=== PATIENT | female | born 1995 | race American Indian/Alaskan Native ===

== ENCOUNTER 2016-10-06 12:57 | Inpatient (IN) | payer MEDICAID ==
[2016-10-06] MEDS: LACTATED RINGERS 1,000 ML IV SCH ×2 (13:20→14:52)
[2016-10-06] MEDS ORDERED: BRETHINE IVP PRN (13:41)
[2016-10-06] MEDS ORDERED: MINERAL OIL PO PRN (13:41)
[2016-10-06] MEDS ORDERED: BRETHINE SUB-Q PRN (13:41)
[2016-10-06] MEDS ORDERED: SUBLIMAZE IV PRN (13:41)
[2016-10-06] MEDS ORDERED: ePHEDrine SULFATE IV PRN ×2 (13:41→14:36)
--- NOTE | 2016-10-06 13:50 | History and Physical Report ---
History of Present Illness Date of examination: 10/06/16 (Direct admit from office apt) Date of admission: 10/06/16 12:57 Chief complaint: FHR decelerations on NST at office apt Past History Past Surgical History: no surgical history Family/Genetic History: diabetes, hypertension, cancer Social history: single - Obstetrical History Expected Date of Delivery: 10/01/16 Actual Gestation: 40 Week(s) 5 Day(s) : 2 Para: 1 Hx # Term Pregnancies: 1 Number of Living Children: 1 #1 year: 2,015 Birthweight: 3.827 kg Method of Delivery: Vaginal Gestational age at delivery: 40 Complications: other (Induction for oligo) Medications and Allergies Allergies Allergy/AdvReac Type Severity Reaction Status Date / Time latex Allergy Rash Verified 05/18/16 12:51 Home Medications Medication Instructions Recorded Confirmed Last Taken Type Ondansetron [Zofran Odt] 4 mg PO Q8H PRN #10 tab.rapdis 05/18/16 Unknown Rx Review of Systems All systems: negative - Vital Signs Vital signs: Vital Signs Pulse BP Pulse Ox 118 H 116/77 99 10/06/16 13:08 10/06/16 13:08 10/06/16 13:08 Temp Pulse Resp BP Pulse Ox 89 116/77 100 10/06/16 13:43 10/06/16 13:08 10/06/16 13:43 - Physical Exam Breasts: Positive: normal Cardiovascular: Regular rate Lungs: Positive: Clear to auscultation Abdomen: Positive: normal appearance, soft Genitourinary (Female): Positive: normal external genitalia Vulva: both: normal Vagina: Positive: normal moisture Cervix: Negative: lesion, discharge Uterus: Positive: normal size, normal contour Adnexa: both: normal Anus/Rectum: Positive: normal perianal skin, heme negative. Negative: rectal mass, hemorrhoids Extremities: Deep Tendon Reflex Grade: Normal +2 - Obstetrical Uterine Contraction Monitor Mode: External Cervical Dilatation: 4 Cervical Effacement Percentage: 80 station: -1 Uterine Contraction Pattern: Regular Uterine Contraction Intensity: Moderate Results All other labs normal. Assessment and Plan A. 21 y/o admitted after repetative FHR decels on NST in office Pt with SOOL during office visit with ctx now Q 2-3 min Pt desires epidural now FHR tracing improved O/A to hosp P Routine admission, labs, VS Close obs of maternal/ status Physician consult for maternal/ indications Epidural when IVF bolus and labs completed' At this time, anticipate
[2016-10-06] MEDS ORDERED: PITOCin/NS 20 UNIT/1000ML DRIP 1,000 ML IV SCH (14:00)
[2016-10-06] MEDS ORDERED: FLUARIX QUAD 2016-2017(36 MOS+) IM ONE (14:02)
[2016-10-06] MEDS ORDERED: BOOSTRIX IM ONE (14:02)
[2016-10-06 14:15] LABS: Hematocrit 32.2 % (30.3-42.9); Hemoglobin 9.8 gm/dl (10.1-14.3); Mean Corpuscular HGB Conc 30 % (30-34); Platelet Count 293 K/mm3 (140-440); Red Blood Count 4.95 M/mm3 (3.65-5.03); Red Cell Distribution Width 18.5 % (13.2-15.2); White Blood Count 9.8 K/mm3 (4.5-11.0)
[2016-10-06 14:19] LABS: Mean Corpuscular Hemoglobin 20 pg (28-32); Mean Corpuscular Volume 65 fl (79-97)
[2016-10-06] MEDS ORDERED: NARCAN 2 MG/2 ML IV PRN (14:36)
--- NOTE | 2016-10-06 14:36 | Anesthesia Consultation ---
Anesthesia Consult and Med Hx Date of service: 10/06/16 - Airway Anesthetic Teeth Evaluation: Good ROM Head & Neck: Adequate Mental/Hyoid Distance: Adequate Mallampati Class: Class II Intubation Access Assessment: Probably Good - Pulmonary Exam CTA: Yes - Cardiac Exam Cardiac Exam: RRR - Pre-Operative Health Status ASA Pre-Surgery Classification: ASA2 Proposed Anesthetic Plan: Epidural - Pre-Anesthesia Comment Pre-Anesthesia Comments: plt: 293 - Pulmonary Hx Asthma: No COPD: No Hx Pneumonia: No - Cardiovascular System Hx Hypertension: No - Central Nervous System Hx Seizures: No Hx Back Pain: Yes Hx Psychiatric Problems: No - Gastrointestinal Hx Gastroesophageal Reflux Disease: Yes - Endocrine Hx Renal Disease: No Hx End Stage Renal Disease: No Hx Hypothyroidism: No Hx Hyperthyroidism: No - Hematic Hx Anemia: No (H/H: 9.8/32.2) Hx Sickle Cell Disease: No - Other Systems Hx Alcohol Use: No
[2016-10-06] MEDS ORDERED: fentaNYL-BUPIV 2 MCG/ML-0.125% 100 ML EPIDURAL SCH (15:00)
--- NOTE | 2016-10-06 16:57 | Progress Note ---
Assessment and Plan A, Term IUP, active labor now Mec stained fluid P Continue close obs of maternal/ status [facility] Continue to anticipate at this time with physician consult per maternal/ indications Subjective - Subjective Date of service: 10/06/16 Patient reports: other (Comfortable now with epidural. FOB resting in room) Objective - Vital Signs Vital Signs: Vital Signs - 12hr 10/06/16 10/06/16 10/06/16 13:08 13:13 13:18 Temperature Pulse Rate 115 H 111 H 100 H Respiratory Rate Blood Pressure 116/77 O2 Sat by Pulse 99 99 100 Oximetry 10/06/16 10/06/16 10/06/16 13:20 13:23 13:28 Temperature 97.9 F Pulse Rate 107 H 106 H Respiratory 14 Rate Blood Pressure O2 Sat by Pulse 100 99 100 Oximetry 10/06/16 10/06/16 10/06/16 13:33 13:38 13:43 Temperature Pulse Rate 97 H 87 89 Respiratory Rate Blood Pressure O2 Sat by Pulse 100 100 100 Oximetry 10/06/16 10/06/16 10/06/16 13:48 13:53 13:58 Temperature Pulse Rate 91 H 105 H 88 Respiratory Rate Blood Pressure O2 Sat by Pulse 100 100 100 Oximetry 10/06/16 10/06/16 10/06/16 14:03 14:08 14:13 Temperature Pulse Rate 87 89 92 H Respiratory Rate Blood Pressure O2 Sat by Pulse 100 100 100 Oximetry 10/06/16 10/06/16 10/06/16 14:18 14:23 14:28 Temperature Pulse Rate 87 86 93 H Respiratory Rate Blood Pressure O2 Sat by Pulse 100 100 100 Oximetry 10/06/16 10/06/16 10/06/16 14:33 14:35 14:36 Temperature Pulse Rate 93 H 100 H 96 H Respiratory Rate Blood Pressure 124/81 125/85 O2 Sat by Pulse 100 Oximetry 10/06/16 10/06/16 10/06/16 14:38 14:40 14:41 Temperature Pulse Rate 93 H 93 H 49 L Respiratory Rate Blood Pressure 112/72 114/73 O2 Sat by Pulse 99 83 L Oximetry 10/06/16 10/06/16 10/06/16 14:42 14:43 14:44 Temperature Pulse Rate 96 H 99 H 101 H Respiratory Rate Blood Pressure 117/73 125/82 O2 Sat by Pulse 99 Oximetry 10/06/16 10/06/16 10/06/16 14:46 14:48 14:50 Temperature Pulse Rate 95 H 95 H 92 H Respiratory Rate Blood Pressure 115/70 120/71 114/67 O2 Sat by Pulse 100 Oximetry 10/06/16 10/06/16 10/06/16 14:52 14:53 14:58 Temperature Pulse Rate 89 95 H 94 H Respiratory Rate Blood Pressure 124/71 O2 Sat by Pulse 99 100 Oximetry 10/06/16 10/06/16 10/06/16 14:59 15:03 15:08 Temperature Pulse Rate 83 88 85 Respiratory Rate Blood Pressure 116/69 98/57 121/72 O2 Sat by Pulse 100 99 Oximetry 10/06/16 10/06/16 10/06/16 15:13 15:15 15:18 Temperature Pulse Rate 90 82 84 Respiratory Rate Blood Pressure 116/69 O2 Sat by Pulse 99 99 Oximetry 10/06/16 10/06/16 10/06/16 15:19 15:23 15:24 Temperature Pulse Rate 80 93 H 88 Respiratory Rate Blood Pressure 125/57 115/72 O2 Sat by Pulse 100 Oximetry 10/06/16 10/06/16 10/06/16 15:28 15:33 15:38 Temperature Pulse Rate 82 94 H 92 H Respiratory Rate Blood Pressure O2 Sat by Pulse 100 100 99 Oximetry 10/06/16 10/06/16 10/06/16 15:43 15:44 15:48 Temperature Pulse Rate 92 H 96 H 91 H Respiratory Rate Blood Pressure O2 Sat by Pulse 97 92 98 Oximetry 10/06/16 10/06/16 10/06/16 15:53 15:54 15:58 Temperature Pulse Rate 92 H 85 89 Respiratory Rate Blood Pressure 117/71 O2 Sat by Pulse 98 98 Oximetry 10/06/16 10/06/16 10/06/16 16:03 16:08 16:13 Temperature Pulse Rate 93 H 90 89 Respiratory Rate Blood Pressure O2 Sat by Pulse 98 97 97 Oximetry 10/06/16 10/06/16 10/06/16 16:18 16:23 16:25 Temperature Pulse Rate 86 81 85 Respiratory Rate Blood Pressure 116/73 O2 Sat by Pulse 97 98 Oximetry 10/06/16 10/06/16 10/06/16 16:28 16:33 16:38 Temperature Pulse Rate 98 H 82 79 Respiratory Rate Blood Pressure O2 Sat by Pulse 100 99 100 Oximetry 10/06/16 10/06/16 10/06/16 16:43 16:48 16:53 Temperature Pulse Rate 98 H 106 H 69 Respiratory Rate Blood Pressure O2 Sat by Pulse 98 100 99 Oximetry - Exam Breasts: deferred Cardiovascular: Regular rate Lungs: Normal air movement Abdomen: Present: normal appearance, soft Vulva: both: normal Uterus: Present: normal FHR: category 2 Uterine Contraction Monitor Mode: External Cervical Dilatation: 6 (SROM with large gush of mec stained fluid during exam) Cervical Effacement Percentage: 90 station: -2 Uterine Contraction Pattern: Regular Extremities: normal - Labs Labs: Abnormal Labs 10/06/16 13:30 Hgb 9.8 L MCV 65 L MCH 20 L RDW 18.5 H Laboratory Results - last 24 hr 10/06/16 10/06/16 13:30 13:30 WBC 9.8 RBC 4.95 Hgb 9.8 L Hct 32.2 MCV 65 L MCH 20 L MCHC 30 RDW 18.5 H Plt Count 293 Blood Type O POSITIVE Antibody Screen Negative
--- NOTE | 2016-10-06 18:16 | Progress Note ---
Assessment and Plan A. Term IUP, active labor Progressing FHR remains over all reassuring P Continue to obs maternal/ status\ Continue anticipate Plan physician consult as indicated Subjective - Subjective Date of service: 10/06/16 Patient reports: other (Continues to be comfortable with epidural) Objective - Vital Signs Vital Signs: Vital Signs - 12hr 10/06/16 10/06/16 10/06/16 13:08 13:13 13:18 Temperature Pulse Rate 115 H 111 H 100 H Respiratory Rate Blood Pressure 116/77 O2 Sat by Pulse 99 99 100 Oximetry 10/06/16 10/06/16 10/06/16 13:20 13:23 13:28 Temperature 97.9 F Pulse Rate 107 H 106 H Respiratory 14 Rate Blood Pressure O2 Sat by Pulse 100 99 100 Oximetry 10/06/16 10/06/16 10/06/16 13:33 13:38 13:43 Temperature Pulse Rate 97 H 87 89 Respiratory Rate Blood Pressure O2 Sat by Pulse 100 100 100 Oximetry 10/06/16 10/06/16 10/06/16 13:48 13:53 13:58 Temperature Pulse Rate 91 H 105 H 88 Respiratory Rate Blood Pressure O2 Sat by Pulse 100 100 100 Oximetry 10/06/16 10/06/16 10/06/16 14:03 14:08 14:13 Temperature Pulse Rate 87 89 92 H Respiratory Rate Blood Pressure O2 Sat by Pulse 100 100 100 Oximetry 10/06/16 10/06/16 10/06/16 14:18 14:23 14:28 Temperature Pulse Rate 87 86 93 H Respiratory Rate Blood Pressure O2 Sat by Pulse 100 100 100 Oximetry 10/06/16 10/06/16 10/06/16 14:33 14:35 14:36 Temperature Pulse Rate 93 H 100 H 96 H Respiratory Rate Blood Pressure 124/81 125/85 O2 Sat by Pulse 100 Oximetry 10/06/16 10/06/16 10/06/16 14:38 14:40 14:41 Temperature Pulse Rate 93 H 93 H 49 L Respiratory Rate Blood Pressure 112/72 114/73 O2 Sat by Pulse 99 83 L Oximetry 10/06/16 10/06/16 10/06/16 14:42 14:43 14:44 Temperature Pulse Rate 96 H 99 H 101 H Respiratory Rate Blood Pressure 117/73 125/82 O2 Sat by Pulse 99 Oximetry 10/06/16 10/06/16 10/06/16 14:46 14:48 14:50 Temperature Pulse Rate 95 H 95 H 92 H Respiratory Rate Blood Pressure 115/70 120/71 114/67 O2 Sat by Pulse 100 Oximetry 10/06/16 10/06/16 10/06/16 14:52 14:53 14:58 Temperature Pulse Rate 89 95 H 94 H Respiratory Rate Blood Pressure 124/71 O2 Sat by Pulse 99 100 Oximetry 10/06/16 10/06/16 10/06/16 14:59 15:03 15:08 Temperature Pulse Rate 83 88 85 Respiratory Rate Blood Pressure 116/69 98/57 121/72 O2 Sat by Pulse 100 99 Oximetry 10/06/16 10/06/16 10/06/16 15:13 15:15 15:18 Temperature Pulse Rate 90 82 84 Respiratory Rate Blood Pressure 116/69 O2 Sat by Pulse 99 99 Oximetry 10/06/16 10/06/16 10/06/16 15:19 15:23 15:24 Temperature Pulse Rate 80 93 H 88 Respiratory Rate Blood Pressure 125/57 115/72 O2 Sat by Pulse 100 Oximetry 10/06/16 10/06/16 10/06/16 15:28 15:33 15:38 Temperature Pulse Rate 82 94 H 92 H Respiratory Rate Blood Pressure O2 Sat by Pulse 100 100 99 Oximetry 10/06/16 10/06/16 10/06/16 15:43 15:44 15:48 Temperature Pulse Rate 92 H 96 H 91 H Respiratory Rate Blood Pressure O2 Sat by Pulse 97 92 98 Oximetry 10/06/16 10/06/16 10/06/16 15:53 15:54 15:58 Temperature Pulse Rate 92 H 85 89 Respiratory Rate Blood Pressure 117/71 O2 Sat by Pulse 98 98 Oximetry 10/06/16 10/06/16 10/06/16 16:03 16:08 16:13 Temperature Pulse Rate 93 H 90 89 Respiratory Rate Blood Pressure O2 Sat by Pulse 98 97 97 Oximetry 10/06/16 10/06/16 10/06/16 16:18 16:23 16:25 Temperature Pulse Rate 86 81 85 Respiratory Rate Blood Pressure 116/73 O2 Sat by Pulse 97 98 Oximetry 10/06/16 10/06/16 10/06/16 16:28 16:33 16:38 Temperature Pulse Rate 98 H 82 79 Respiratory Rate Blood Pressure O2 Sat by Pulse 100 99 100 Oximetry 10/06/16 10/06/16 10/06/16 16:43 16:48 16:53 Temperature Pulse Rate 98 H 106 H 69 Respiratory Rate Blood Pressure O2 Sat by Pulse 98 100 99 Oximetry 10/06/16 10/06/16 10/06/16 16:55 16:58 17:03 Temperature Pulse Rate 104 H 96 H 86 Respiratory Rate Blood Pressure 135/94 O2 Sat by Pulse 98 99 Oximetry 10/06/16 10/06/16 10/06/16 17:06 17:08 17:13 Temperature 98.0 F Pulse Rate 77 78 Respiratory 18 Rate Blood Pressure O2 Sat by Pulse 100 100 Oximetry 10/06/16 10/06/16 10/06/16 17:18 17:23 17:24 Temperature Pulse Rate 74 83 84 Respiratory Rate Blood Pressure 140/90 O2 Sat by Pulse 100 100 Oximetry 10/06/16 10/06/16 10/06/16 17:28 17:33 17:38 Temperature Pulse Rate 87 71 73 Respiratory Rate Blood Pressure O2 Sat by Pulse 100 100 100 Oximetry 10/06/16 10/06/16 10/06/16 17:43 17:48 17:53 Temperature Pulse Rate 73 88 80 Respiratory Rate Blood Pressure O2 Sat by Pulse 100 100 100 Oximetry 10/06/16 10/06/16 10/06/16 17:56 17:58 18:03 Temperature Pulse Rate 80 74 88 Respiratory Rate Blood Pressure 131/78 O2 Sat by Pulse 100 99 Oximetry 10/06/16 10/06/16 18:08 18:13 Temperature Pulse Rate 89 95 H Respiratory Rate Blood Pressure O2 Sat by Pulse 99 100 Oximetry - Exam Abdomen: Present: normal appearance Vulva: both: normal Uterus: Present: normal FHR: auscultation normal, other (FHR remains reassuring. FHR decle audible during exam but didn't trace. Resolved on return of pt to side after exam) Uterine Contraction Monitor Mode: External Cervical Dilatation: 7 Cervical Effacement Percentage: 100 station: -1 Uterine Contraction Pattern: Regular Uterine Contraction Intensity: Moderate - Labs Labs: Abnormal Labs 10/06/16 13:30 Hgb 9.8 L MCV 65 L MCH 20 L RDW 18.5 H Laboratory Results - last 24 hr 10/06/16 10/06/16 13:30 13:30 WBC 9.8 RBC 4.95 Hgb 9.8 L Hct 32.2 MCV 65 L MCH 20 L MCHC 30 RDW 18.5 H Plt Count 293 Blood Type O POSITIVE Antibody Screen Negative
--- NOTE | 2016-10-06 20:43 | Progress Note ---
Assessment and Plan A. No change in cx /maternal status stable P IUPC/FSE placed Pitocin ordered Observation for progress Observation of maternal/ status Physician consult if indicated Continue at this time, to anticipate Subjective - Subjective Date of service: 10/06/16 Patient reports: other (Continues to be comfortable with epidural) Objective - Vital Signs Vital Signs: Vital Signs - 12hr 10/06/16 10/06/16 10/06/16 13:08 13:13 13:18 Temperature Pulse Rate 115 H 111 H 100 H Respiratory Rate Blood Pressure 116/77 O2 Sat by Pulse 99 99 100 Oximetry 10/06/16 10/06/16 10/06/16 13:20 13:23 13:28 Temperature 97.9 F Pulse Rate 107 H 106 H Respiratory 14 Rate Blood Pressure O2 Sat by Pulse 100 99 100 Oximetry 10/06/16 10/06/16 10/06/16 13:33 13:38 13:43 Temperature Pulse Rate 97 H 87 89 Respiratory Rate Blood Pressure O2 Sat by Pulse 100 100 100 Oximetry 10/06/16 10/06/16 10/06/16 13:48 13:53 13:58 Temperature Pulse Rate 91 H 105 H 88 Respiratory Rate Blood Pressure O2 Sat by Pulse 100 100 100 Oximetry 10/06/16 10/06/16 10/06/16 14:03 14:08 14:13 Temperature Pulse Rate 87 89 92 H Respiratory Rate Blood Pressure O2 Sat by Pulse 100 100 100 Oximetry 10/06/16 10/06/16 10/06/16 14:18 14:23 14:28 Temperature Pulse Rate 87 86 93 H Respiratory Rate Blood Pressure O2 Sat by Pulse 100 100 100 Oximetry 10/06/16 10/06/16 10/06/16 14:33 14:35 14:36 Temperature Pulse Rate 93 H 100 H 96 H Respiratory Rate Blood Pressure 124/81 125/85 O2 Sat by Pulse 100 Oximetry 10/06/16 10/06/16 10/06/16 14:38 14:40 14:41 Temperature Pulse Rate 93 H 93 H 49 L Respiratory Rate Blood Pressure 112/72 114/73 O2 Sat by Pulse 99 83 L Oximetry 10/06/16 10/06/16 10/06/16 14:42 14:43 14:44 Temperature Pulse Rate 96 H 99 H 101 H Respiratory Rate Blood Pressure 117/73 125/82 O2 Sat by Pulse 99 Oximetry 10/06/16 10/06/16 10/06/16 14:46 14:48 14:50 Temperature Pulse Rate 95 H 95 H 92 H Respiratory Rate Blood Pressure 115/70 120/71 114/67 O2 Sat by Pulse 100 Oximetry 10/06/16 10/06/16 10/06/16 14:52 14:53 14:58 Temperature Pulse Rate 89 95 H 94 H Respiratory Rate Blood Pressure 124/71 O2 Sat by Pulse 99 100 Oximetry 10/06/16 10/06/16 10/06/16 14:59 15:03 15:08 Temperature Pulse Rate 83 88 85 Respiratory Rate Blood Pressure 116/69 98/57 121/72 O2 Sat by Pulse 100 99 Oximetry 10/06/16 10/06/16 10/06/16 15:13 15:15 15:18 Temperature Pulse Rate 90 82 84 Respiratory Rate Blood Pressure 116/69 O2 Sat by Pulse 99 99 Oximetry 10/06/16 10/06/16 10/06/16 15:19 15:20 15:23 Temperature Pulse Rate 80 93 H Respiratory 16 Rate Blood Pressure 125/57 O2 Sat by Pulse 100 Oximetry 10/06/16 10/06/16 10/06/16 15:24 15:28 15:33 Temperature Pulse Rate 88 82 94 H Respiratory Rate Blood Pressure 115/72 O2 Sat by Pulse 100 100 Oximetry 10/06/16 10/06/16 10/06/16 15:38 15:43 15:44 Temperature Pulse Rate 92 H 92 H 96 H Respiratory Rate Blood Pressure O2 Sat by Pulse 99 97 92 Oximetry 10/06/16 10/06/16 10/06/16 15:48 15:53 15:54 Temperature Pulse Rate 91 H 92 H 85 Respiratory Rate Blood Pressure 117/71 O2 Sat by Pulse 98 98 Oximetry 10/06/16 10/06/16 10/06/16 15:58 16:03 16:08 Temperature Pulse Rate 89 93 H 90 Respiratory Rate Blood Pressure O2 Sat by Pulse 98 98 97 Oximetry 10/06/16 10/06/16 10/06/16 16:13 16:18 16:23 Temperature Pulse Rate 89 86 81 Respiratory Rate Blood Pressure O2 Sat by Pulse 97 97 98 Oximetry 10/06/16 10/06/16 10/06/16 16:25 16:28 16:33 Temperature Pulse Rate 85 98 H 82 Respiratory Rate Blood Pressure 116/73 O2 Sat by Pulse 100 99 Oximetry 10/06/16 10/06/16 10/06/16 16:38 16:43 16:48 Temperature Pulse Rate 79 98 H 106 H Respiratory Rate Blood Pressure O2 Sat by Pulse 100 98 100 Oximetry 10/06/16 10/06/16 10/06/16 16:53 16:55 16:58 Temperature Pulse Rate 69 104 H 96 H Respiratory Rate Blood Pressure 135/94 O2 Sat by Pulse 99 98 Oximetry 10/06/16 10/06/16 10/06/16 17:03 17:06 17:08 Temperature 98.0 F Pulse Rate 86 77 Respiratory 18 Rate Blood Pressure O2 Sat by Pulse 99 100 Oximetry 10/06/16 10/06/16 10/06/16 17:13 17:18 17:23 Temperature Pulse Rate 78 74 83 Respiratory Rate Blood Pressure O2 Sat by Pulse 100 100 100 Oximetry 10/06/16 10/06/16 10/06/16 17:24 17:28 17:33 Temperature Pulse Rate 84 87 71 Respiratory Rate Blood Pressure 140/90 O2 Sat by Pulse 100 100 Oximetry 10/06/16 10/06/16 10/06/16 17:38 17:43 17:48 Temperature Pulse Rate 73 73 88 Respiratory Rate Blood Pressure O2 Sat by Pulse 100 100 100 Oximetry 10/06/16 10/06/16 10/06/16 17:53 17:56 17:58 Temperature Pulse Rate 80 80 74 Respiratory Rate Blood Pressure 131/78 O2 Sat by Pulse 100 100 Oximetry 10/06/16 10/06/16 10/06/16 18:03 18:08 18:13 Temperature Pulse Rate 88 89 95 H Respiratory Rate Blood Pressure O2 Sat by Pulse 99 99 100 Oximetry 10/06/16 10/06/16 10/06/16 18:18 18:23 18:24 Temperature Pulse Rate 65 77 66 Respiratory Rate Blood Pressure 118/67 O2 Sat by Pulse 100 100 Oximetry 10/06/16 10/06/16 10/06/16 18:28 18:33 18:38 Temperature Pulse Rate 78 66 68 Respiratory Rate Blood Pressure O2 Sat by Pulse 99 99 99 Oximetry 10/06/16 10/06/16 10/06/16 18:43 18:48 18:53 Temperature Pulse Rate 73 69 68 Respiratory Rate Blood Pressure O2 Sat by Pulse 99 98 99 Oximetry 10/06/16 10/06/16 10/06/16 18:56 18:58 19:03 Temperature Pulse Rate 68 70 72 Respiratory Rate Blood Pressure 124/69 O2 Sat by Pulse 99 98 Oximetry 10/06/16 10/06/16 10/06/16 19:08 19:13 19:14 Temperature Pulse Rate 72 91 H 86 Respiratory Rate Blood Pressure 115/73 O2 Sat by Pulse 98 98 Oximetry 10/06/16 10/06/16 10/06/16 19:15 19:18 19:23 Temperature 97.2 F L Pulse Rate 71 99 H Respiratory 18 Rate Blood Pressure O2 Sat by Pulse 98 99 Oximetry 10/06/16 10/06/16 10/06/16 19:25 19:28 19:33 Temperature Pulse Rate 78 103 H 79 Respiratory Rate Blood Pressure 143/84 O2 Sat by Pulse 98 100 Oximetry 10/06/16 10/06/16 10/06/16 19:38 19:43 19:48 Temperature Pulse Rate 74 80 101 H Respiratory Rate Blood Pressure O2 Sat by Pulse 97 98 97 Oximetry 10/06/16 10/06/16 10/06/16 19:53 19:55 19:58 Temperature Pulse Rate 94 H 91 H 88 Respiratory Rate Blood Pressure 144/89 O2 Sat by Pulse 98 98 Oximetry 10/06/16 10/06/16 10/06/16 20:03 20:08 20:13 Temperature Pulse Rate 73 77 99 H Respiratory Rate Blood Pressure O2 Sat by Pulse 98 98 98 Oximetry 10/06/16 10/06/16 10/06/16 20:18 20:23 20:25 Temperature Pulse Rate 91 H 106 H 100 H Respiratory Rate Blood Pressure 134/88 O2 Sat by Pulse 99 99 Oximetry 10/06/16 10/06/16 10/06/16 20:28 20:33 20:38 Temperature Pulse Rate 97 H 116 H 105 H Respiratory Rate Blood Pressure O2 Sat by Pulse 96 98 97 Oximetry - Exam Cardiovascular: Regular rate Abdomen: Present: normal appearance, soft Vulva: both: normal Uterus: Present: normal FHR: category 2 FHR comments: Remains reassuring with accels and normal variability with intermittent FHR decels and spontaneous resolution. Uterine Contraction Monitor Mode: External Cervical Dilatation: 7 Cervical Effacement Percentage: 100 station: -1 Uterine Contraction Pattern: Regular Uterine Contraction Intensity: Moderate - Labs Labs: Abnormal Labs 10/06/16 13:30 Hgb 9.8 L MCV 65 L MCH 20 L RDW 18.5 H Laboratory Results - last 24 hr 10/06/16 10/06/16 13:30 13:30 WBC 9.8 RBC 4.95 Hgb 9.8 L Hct 32.2 MCV 65 L MCH 20 L MCHC 30 RDW 18.5 H Plt Count 293 Blood Type O POSITIVE Antibody Screen Negative
[2016-10-06] MEDS ORDERED: PITOCin/NS 30 UNIT/500ML 500 ML IV SCH (21:00)
--- NOTE | 2016-10-06 21:54 | Progress Note ---
Assessment and Plan A. Slowly progressing /maternal status stable P Pitocin augmentation Anticipate Subjective - Subjective Date of service: 10/06/16 (RN called to report she has not had time to start pitocin b/c she got a new admission) Patient reports: other (Continues to be comfortable with epidural) Objective - Vital Signs Vital Signs: Vital Signs - 12hr 10/06/16 10/06/16 10/06/16 13:08 13:13 13:18 Temperature Pulse Rate 115 H 111 H 100 H Respiratory Rate Blood Pressure 116/77 O2 Sat by Pulse 99 99 100 Oximetry 10/06/16 10/06/16 10/06/16 13:20 13:23 13:28 Temperature 97.9 F Pulse Rate 107 H 106 H Respiratory 14 Rate Blood Pressure O2 Sat by Pulse 100 99 100 Oximetry 10/06/16 10/06/16 10/06/16 13:33 13:38 13:43 Temperature Pulse Rate 97 H 87 89 Respiratory Rate Blood Pressure O2 Sat by Pulse 100 100 100 Oximetry 10/06/16 10/06/16 10/06/16 13:48 13:53 13:58 Temperature Pulse Rate 91 H 105 H 88 Respiratory Rate Blood Pressure O2 Sat by Pulse 100 100 100 Oximetry 10/06/16 10/06/16 10/06/16 14:03 14:08 14:13 Temperature Pulse Rate 87 89 92 H Respiratory Rate Blood Pressure O2 Sat by Pulse 100 100 100 Oximetry 10/06/16 10/06/16 10/06/16 14:18 14:23 14:28 Temperature Pulse Rate 87 86 93 H Respiratory Rate Blood Pressure O2 Sat by Pulse 100 100 100 Oximetry 10/06/16 10/06/16 10/06/16 14:33 14:35 14:36 Temperature Pulse Rate 93 H 100 H 96 H Respiratory Rate Blood Pressure 124/81 125/85 O2 Sat by Pulse 100 Oximetry 10/06/16 10/06/16 10/06/16 14:38 14:40 14:41 Temperature Pulse Rate 93 H 93 H 49 L Respiratory Rate Blood Pressure 112/72 114/73 O2 Sat by Pulse 99 83 L Oximetry 10/06/16 10/06/16 10/06/16 14:42 14:43 14:44 Temperature Pulse Rate 96 H 99 H 101 H Respiratory Rate Blood Pressure 117/73 125/82 O2 Sat by Pulse 99 Oximetry 10/06/16 10/06/16 10/06/16 14:46 14:48 14:50 Temperature Pulse Rate 95 H 95 H 92 H Respiratory Rate Blood Pressure 115/70 120/71 114/67 O2 Sat by Pulse 100 Oximetry 10/06/16 10/06/16 10/06/16 14:52 14:53 14:58 Temperature Pulse Rate 89 95 H 94 H Respiratory Rate Blood Pressure 124/71 O2 Sat by Pulse 99 100 Oximetry 10/06/16 10/06/16 10/06/16 14:59 15:03 15:08 Temperature Pulse Rate 83 88 85 Respiratory Rate Blood Pressure 116/69 98/57 121/72 O2 Sat by Pulse 100 99 Oximetry 10/06/16 10/06/16 10/06/16 15:13 15:15 15:18 Temperature Pulse Rate 90 82 84 Respiratory Rate Blood Pressure 116/69 O2 Sat by Pulse 99 99 Oximetry 10/06/16 10/06/16 10/06/16 15:19 15:20 15:23 Temperature Pulse Rate 80 93 H Respiratory 16 Rate Blood Pressure 125/57 O2 Sat by Pulse 100 Oximetry 10/06/16 10/06/16 10/06/16 15:24 15:28 15:33 Temperature Pulse Rate 88 82 94 H Respiratory Rate Blood Pressure 115/72 O2 Sat by Pulse 100 100 Oximetry 10/06/16 10/06/16 10/06/16 15:38 15:43 15:44 Temperature Pulse Rate 92 H 92 H 96 H Respiratory Rate Blood Pressure O2 Sat by Pulse 99 97 92 Oximetry 10/06/16 10/06/16 10/06/16 15:48 15:53 15:54 Temperature Pulse Rate 91 H 92 H 85 Respiratory Rate Blood Pressure 117/71 O2 Sat by Pulse 98 98 Oximetry 10/06/16 10/06/16 10/06/16 15:58 16:03 16:08 Temperature Pulse Rate 89 93 H 90 Respiratory Rate Blood Pressure O2 Sat by Pulse 98 98 97 Oximetry 10/06/16 10/06/16 10/06/16 16:13 16:18 16:23 Temperature Pulse Rate 89 86 81 Respiratory Rate Blood Pressure O2 Sat by Pulse 97 97 98 Oximetry 10/06/16 10/06/16 10/06/16 16:25 16:28 16:33 Temperature Pulse Rate 85 98 H 82 Respiratory Rate Blood Pressure 116/73 O2 Sat by Pulse 100 99 Oximetry 10/06/16 10/06/16 10/06/16 16:38 16:43 16:48 Temperature Pulse Rate 79 98 H 106 H Respiratory Rate Blood Pressure O2 Sat by Pulse 100 98 100 Oximetry 10/06/16 10/06/16 10/06/16 16:53 16:55 16:58 Temperature Pulse Rate 69 104 H 96 H Respiratory Rate Blood Pressure 135/94 O2 Sat by Pulse 99 98 Oximetry 10/06/16 10/06/16 10/06/16 17:03 17:06 17:08 Temperature 98.0 F Pulse Rate 86 77 Respiratory 18 Rate Blood Pressure O2 Sat by Pulse 99 100 Oximetry 10/06/16 10/06/16 10/06/16 17:13 17:18 17:23 Temperature Pulse Rate 78 74 83 Respiratory Rate Blood Pressure O2 Sat by Pulse 100 100 100 Oximetry 10/06/16 10/06/16 10/06/16 17:24 17:28 17:33 Temperature Pulse Rate 84 87 71 Respiratory Rate Blood Pressure 140/90 O2 Sat by Pulse 100 100 Oximetry 10/06/16 10/06/16 10/06/16 17:38 17:43 17:48 Temperature Pulse Rate 73 73 88 Respiratory Rate Blood Pressure O2 Sat by Pulse 100 100 100 Oximetry 10/06/16 10/06/16 10/06/16 17:53 17:56 17:58 Temperature Pulse Rate 80 80 74 Respiratory Rate Blood Pressure 131/78 O2 Sat by Pulse 100 100 Oximetry 10/06/16 10/06/16 10/06/16 18:03 18:08 18:13 Temperature Pulse Rate 88 89 95 H Respiratory Rate Blood Pressure O2 Sat by Pulse 99 99 100 Oximetry 10/06/16 10/06/16 10/06/16 18:18 18:23 18:24 Temperature Pulse Rate 65 77 66 Respiratory Rate Blood Pressure 118/67 O2 Sat by Pulse 100 100 Oximetry 10/06/16 10/06/16 10/06/16 18:28 18:33 18:38 Temperature Pulse Rate 78 66 68 Respiratory Rate Blood Pressure O2 Sat by Pulse 99 99 99 Oximetry 10/06/16 10/06/16 10/06/16 18:43 18:48 18:53 Temperature Pulse Rate 73 69 68 Respiratory Rate Blood Pressure O2 Sat by Pulse 99 98 99 Oximetry 10/06/16 10/06/16 10/06/16 18:56 18:58 19:03 Temperature Pulse Rate 68 70 72 Respiratory Rate Blood Pressure 124/69 O2 Sat by Pulse 99 98 Oximetry 10/06/16 10/06/16 10/06/16 19:08 19:13 19:14 Temperature Pulse Rate 72 91 H 86 Respiratory Rate Blood Pressure 115/73 O2 Sat by Pulse 98 98 Oximetry 10/06/16 10/06/16 10/06/16 19:15 19:18 19:23 Temperature 97.2 F L Pulse Rate 71 99 H Respiratory 18 Rate Blood Pressure O2 Sat by Pulse 98 99 Oximetry 10/06/16 10/06/16 10/06/16 19:25 19:28 19:33 Temperature Pulse Rate 78 103 H 79 Respiratory Rate Blood Pressure 143/84 O2 Sat by Pulse 98 100 Oximetry 10/06/16 10/06/16 10/06/16 19:38 19:43 19:48 Temperature Pulse Rate 74 80 101 H Respiratory Rate Blood Pressure O2 Sat by Pulse 97 98 97 Oximetry 10/06/16 10/06/16 10/06/16 19:53 19:55 19:58 Temperature Pulse Rate 94 H 91 H 88 Respiratory Rate Blood Pressure 144/89 O2 Sat by Pulse 98 98 Oximetry 10/06/16 10/06/16 10/06/16 20:03 20:08 20:13 Temperature Pulse Rate 73 77 99 H Respiratory Rate Blood Pressure O2 Sat by Pulse 98 98 98 Oximetry 10/06/16 10/06/16 10/06/16 20:18 20:23 20:25 Temperature Pulse Rate 91 H 106 H 100 H Respiratory Rate Blood Pressure 134/88 O2 Sat by Pulse 99 99 Oximetry 10/06/16 10/06/16 10/06/16 20:28 20:33 20:38 Temperature Pulse Rate 97 H 116 H 105 H Respiratory Rate Blood Pressure O2 Sat by Pulse 96 98 97 Oximetry 10/06/16 10/06/16 10/06/16 20:43 20:48 20:53 Temperature Pulse Rate 105 H 103 H 109 H Respiratory Rate Blood Pressure O2 Sat by Pulse 99 99 99 Oximetry 10/06/16 10/06/16 10/06/16 20:55 20:58 21:03 Temperature Pulse Rate 95 H 94 H 98 H Respiratory Rate Blood Pressure 119/91 O2 Sat by Pulse 100 99 Oximetry 10/06/16 10/06/16 10/06/16 21:08 21:13 21:18 Temperature Pulse Rate 104 H 105 H 88 Respiratory Rate Blood Pressure O2 Sat by Pulse 98 99 99 Oximetry 10/06/16 10/06/16 10/06/16 21:23 21:24 21:28 Temperature Pulse Rate 100 H 87 92 H Respiratory Rate Blood Pressure 125/82 O2 Sat by Pulse 99 100 Oximetry 10/06/16 10/06/16 10/06/16 21:33 21:38 21:43 Temperature Pulse Rate 85 78 98 H Respiratory Rate Blood Pressure O2 Sat by Pulse 99 100 99 Oximetry 10/06/16 21:48 Temperature Pulse Rate 94 H Respiratory Rate Blood Pressure O2 Sat by Pulse 100 Oximetry - Exam Abdomen: Present: normal appearance, soft. Absent: distention, tenderness Vulva: both: normal Cervical Dilatation: 9 Cervical Effacement Percentage: 100 station: 0 Uterine Contraction Pattern: Regular - Labs Labs: Abnormal Labs 10/06/16 13:30 Hgb 9.8 L MCV 65 L MCH 20 L RDW 18.5 H Laboratory Results - last 24 hr 10/06/16 10/06/16 13:30 13:30 WBC 9.8 RBC 4.95 Hgb 9.8 L Hct 32.2 MCV 65 L MCH 20 L MCHC 30 RDW 18.5 H Plt Count 293 Blood Type O POSITIVE Antibody Screen Negative
[2016-10-06] MEDS ORDERED: MILK OF MAGNESIA PO PRN (23:10)
[2016-10-06] MEDS ORDERED: TUCKS PAD TP PRN (23:10)
[2016-10-06] MEDS ORDERED: DERMOPLAST TP PRN (23:10)
[2016-10-06] MEDS ORDERED: TYLENOL PO PRN (23:10)
[2016-10-06] MEDS ORDERED: ANUCORT-HC PR PRN (23:10)
[2016-10-06] MEDS ORDERED: ZOFRAN IV PRN (23:10)
[2016-10-06] MEDS ORDERED: PHENERGAN PR PRN (23:10)
[2016-10-06] MEDS ORDERED: NORCO 5/325 PO PRN (23:10)
[2016-10-06] MEDS ORDERED: LANSINOH TP PRN (23:10)
[2016-10-06] MEDS ORDERED: DULCOLAX PR PRN (23:10)
--- NOTE | 2016-10-06 23:10 | Procedure Note ---
OB Delivery Note - Delivery Date of Delivery: 10/06/16 (@ 22:43) Surgeon: SOPHIA PARMAR Estimated blood loss: 200cc (Thick mec at SROM: Pedi at del. Cord C&C after del and to warmer without stimulation for pedi assessment.) - Vaginal Delivery position: OA Intrapartum events: meconium Delivery induction: none Delivery augmentation: rupture of membranes, pitocin Delivery monitor: external FHT, internal FHT, internal uterine Route of delivery: Delivery placenta: spontaneous Episiotomy: none Delivery laceration: 1st degree (Small L side Periurethral lac ) Delivery repair: vicryl (3.0 on Sh) - A at 1 minute: 8 at 5 minutes: 9 Infant Gender: Male ( assessed by pedi and left in room. After lac repair infant to mom for skin/skin and initiate breast feeding.)
[2016-10-06] MEDS ORDERED: SODIUM CHLORIDE FLUSH SYRINGE 10 ML IV NR (23:45)
[2016-10-07] MEDS: MOTRIN PO SCH ×3 (00:36→18:15)
--- NOTE | 2016-10-07 10:28 | Progress Note ---
Subjective Date of service: 10/07/16 Interval history: 1st day after normal vaginal delivery Patient is in the bed, comfortable. Pain is well controlled with pain meds. Ambulated well. No residual neurological deficit. No anesthesia complications Objective - Constitutional Vitals: Vital Signs - 12hr 10/06/16 10/06/16 10/06/16 22:33 22:38 22:43 Temperature Pulse Rate 88 87 125 H Pulse Rate [ Right From Monitor] Respiratory Rate Blood Pressure Blood Pressure [Right Arm] O2 Sat by Pulse 99 100 100 Oximetry 10/06/16 10/06/16 10/06/16 22:45 22:48 22:53 Temperature 97.8 F Pulse Rate 106 H 103 H Pulse Rate [ Right From Monitor] Respiratory 18 Rate Blood Pressure Blood Pressure [Right Arm] O2 Sat by Pulse 97 100 Oximetry 10/06/16 10/06/16 10/06/16 22:55 22:58 23:03 Temperature Pulse Rate 113 H 113 H 114 H Pulse Rate [ Right From Monitor] Respiratory Rate Blood Pressure 141/79 Blood Pressure [Right Arm] O2 Sat by Pulse 99 100 Oximetry 10/06/16 10/06/16 10/06/16 23:08 23:10 23:24 Temperature Pulse Rate 110 H 105 H 99 H Pulse Rate [ Right From Monitor] Respiratory Rate Blood Pressure 125/71 127/83 Blood Pressure [Right Arm] O2 Sat by Pulse 100 Oximetry 10/06/16 10/06/16 10/07/16 23:40 23:55 00:25 Temperature 98.8 F Pulse Rate 85 98 H Pulse Rate [ 89 Right From Monitor] Respiratory 20 Rate Blood Pressure 118/61 140/86 Blood Pressure 142/86 [Right Arm] O2 Sat by Pulse Oximetry 10/07/16 10/07/16 04:35 08:20 Temperature 98.5 F 97.7 F Pulse Rate Pulse Rate [ 97 H 94 H Right From Monitor] Respiratory 18 20 Rate Blood Pressure Blood Pressure 128/73 136/88 [Right Arm] O2 Sat by Pulse Oximetry - Labs CBC & Chem 7: 10/06/16 13:30 Labs: Abnormal lab results 10/06/16 Range/Units 13:30 Hgb 9.8 L (10.1-14.3) gm/dl MCV 65 L (79-97) fl MCH 20 L (28-32) pg RDW 18.5 H (13.2-15.2) %
[2016-10-07 13:22] LABS: Hemoglobin 7.8 gm/dl (10.1-14.3)
--- NOTE | 2016-10-07 13:34 | Progress Note ---
Assessment and Plan A: PPD#1 s/p Bottle feeding Iron deficiency Anemia, asymptomatic Stable P: Routine PP care Discharge home in am PP exam in 6 weeks Subjective - Subjective Date of service: 10/07/16 Principal diagnosis: Patient reports: appetite normal, voiding normally, pain well controlled, flatus , ambulating normally [place]: doing well, bottle feeding Objective - Vital Signs Latest vital signs: Vital Signs Temp Pulse Pulse Resp BP BP Pulse Ox 10/07/16 08:20 97.7 F 94 H 20 136/88 10/07/16 04:35 98.5 F 97 H 18 128/73 10/07/16 00:25 98.8 F 89 20 142/86 10/06/16 23:55 98 H 140/86 10/06/16 23:40 85 118/61 10/06/16 23:24 99 H 127/83 10/06/16 23:10 105 H 125/71 10/06/16 23:08 110 H 100 10/06/16 23:03 114 H 100 10/06/16 22:58 113 H 99 10/06/16 22:55 113 H 141/79 10/06/16 22:53 103 H 100 10/06/16 22:48 106 H 97 10/06/16 22:45 97.8 F 18 10/06/16 22:43 125 H 100 10/06/16 22:38 87 100 10/06/16 22:33 88 99 10/06/16 22:28 87 98 10/06/16 22:25 79 110/54 10/06/16 22:23 82 97 10/06/16 22:18 80 98 10/06/16 22:13 83 98 10/06/16 22:08 98 H 98 10/06/16 22:03 77 98 10/06/16 21:58 79 98 10/06/16 21:55 75 108/56 10/06/16 21:53 76 99 10/06/16 21:48 94 H 100 10/06/16 21:43 98 H 99 10/06/16 21:38 78 100 10/06/16 21:33 85 99 10/06/16 21:28 92 H 100 10/06/16 21:24 87 125/82 10/06/16 21:23 100 H 99 10/06/16 21:18 88 99 10/06/16 21:13 105 H 99 10/06/16 21:08 104 H 98 10/06/16 21:03 98 H 99 10/06/16 20:58 94 H 100 10/06/16 20:55 95 H 119/91 10/06/16 20:53 109 H 99 10/06/16 20:48 103 H 99 10/06/16 20:43 105 H 99 10/06/16 20:38 105 H 97 10/06/16 20:33 116 H 98 10/06/16 20:28 97 H 96 10/06/16 20:25 100 H 134/88 10/06/16 20:23 106 H 99 10/06/16 20:18 91 H 99 10/06/16 20:13 99 H 98 10/06/16 20:08 77 98 10/06/16 20:03 73 98 10/06/16 19:58 88 98 10/06/16 19:55 91 H 144/89 10/06/16 19:53 94 H 98 10/06/16 19:48 101 H 97 10/06/16 19:43 80 98 10/06/16 19:38 74 97 10/06/16 19:33 79 100 10/06/16 19:28 103 H 98 10/06/16 19:25 78 143/84 10/06/16 19:23 99 H 99 10/06/16 19:18 71 98 10/06/16 19:15 97.2 F L 18 10/06/16 19:14 86 115/73 10/06/16 19:13 91 H 98 10/06/16 19:08 72 98 10/06/16 19:03 72 98 10/06/16 18:58 70 99 10/06/16 18:56 68 124/69 10/06/16 18:53 68 99 10/06/16 18:48 69 98 10/06/16 18:43 73 99 10/06/16 18:38 68 99 10/06/16 18:33 66 99 10/06/16 18:28 78 99 10/06/16 18:24 66 118/67 10/06/16 18:23 77 100 10/06/16 18:18 65 100 10/06/16 18:13 95 H 100 10/06/16 18:08 89 99 10/06/16 18:03 88 99 10/06/16 17:58 74 100 10/06/16 17:56 80 131/78 10/06/16 17:53 80 100 10/06/16 17:48 88 100 10/06/16 17:43 73 100 10/06/16 17:38 73 100 10/06/16 17:33 71 100 10/06/16 17:28 87 100 10/06/16 17:24 84 140/90 10/06/16 17:23 83 100 10/06/16 17:18 74 100 10/06/16 17:13 78 100 10/06/16 17:08 77 100 10/06/16 17:06 98.0 F 18 10/06/16 17:03 86 99 10/06/16 16:58 96 H 98 10/06/16 16:55 104 H 135/94 10/06/16 16:53 69 99 10/06/16 16:48 106 H 100 10/06/16 16:43 98 H 98 10/06/16 16:38 79 100 10/06/16 16:33 82 99 10/06/16 16:28 98 H 100 10/06/16 16:25 85 116/73 10/06/16 16:23 81 98 10/06/16 16:18 86 97 10/06/16 16:13 89 97 10/06/16 16:08 90 97 10/06/16 16:03 93 H 98 10/06/16 15:58 89 98 10/06/16 15:54 85 117/71 10/06/16 15:53 92 H 98 10/06/16 15:48 91 H 98 10/06/16 15:44 96 H 92 10/06/16 15:43 92 H 97 10/06/16 15:38 92 H 99 10/06/16 15:33 94 H 100 10/06/16 15:28 82 100 10/06/16 15:24 88 115/72 10/06/16 15:23 93 H 100 10/06/16 15:20 16 10/06/16 15:19 80 125/57 10/06/16 15:18 84 99 10/06/16 15:15 82 116/69 10/06/16 15:13 90 99 10/06/16 15:08 85 121/72 99 10/06/16 15:03 88 98/57 100 10/06/16 14:59 83 116/69 10/06/16 14:58 94 H 100 10/06/16 14:53 95 H 99 10/06/16 14:52 89 124/71 10/06/16 14:50 92 H 114/67 10/06/16 14:48 95 H 120/71 100 10/06/16 14:46 95 H 115/70 10/06/16 14:44 101 H 125/82 10/06/16 14:43 99 H 99 10/06/16 14:42 96 H 117/73 10/06/16 14:41 49 L 83 L 10/06/16 14:40 93 H 114/73 10/06/16 14:38 93 H 112/72 99 10/06/16 14:36 96 H 125/85 10/06/16 14:35 100 H 124/81 10/06/16 14:33 93 H 100 10/06/16 14:28 93 H 100 10/06/16 14:23 86 100 10/06/16 14:18 87 100 10/06/16 14:13 92 H 100 10/06/16 14:08 89 100 10/06/16 14:03 87 100 10/06/16 13:58 88 10/06/16 13:53 105 H 100 10/06/16 13:48 91 H 100 10/06/16 13:43 89 10/06/16 13:38 87 10/06/16 13:33 97 H 100 Intake and Output 10/06/16 10/07/16 10/07/16 22:59 06:59 14:59 Intake Total 1900 3680 600 Output Total 150 1250 600 Balance 1750 2430 0 Intake: IV 1900 2250 Lactated Ringers 1,000 ml 1900 600 @ 125 mls/hr IV DIRECT MARY Rx#:[id number] PITOCin/NS 20 UNIT/1000ML 1150 DRIP 1,000 ML @ 125 mls/ hr IV DIRECT MARY Rx#: [id number] PITOCin/NS 30 UNIT/500ML 500 500 ML @ 2 MILLIUNITS/MIN 2 mls/hr IV TITR MARY Rx# :[id number] Oral 480 Intake, Free Water 240 120 Other 1190 Output: Urine 150 1250 600 Indwelling Catheter 150 500 Void 750 600 Other: Intake, Other Source Saline Solution Total, Intake Amount 1190 240 Total, Output Amount 150 500 600 # Voids Void 1 Estimated Blood Loss 200 - Exam Breasts: Present: normal Cardiovascular: Present: Regular rate Lungs: Present: Normal air movement Vulva: both: normal (scant rubra lochia, no clots), laceration/episiotomy (well approximated) Uterus: Present: firm, fundal height below umbilicus (-1) Extremities: Present: normal Deep Tendon Reflex Grade: Normal +2 - Labs Labs: Abnormal lab results 10/06/16 10/07/16 Range/Units 13:30 12:19 Hgb 9.8 L 7.8 L (10.1-14.3) gm/dl Hct 26.0 L D (30.3-42.9) % MCV 65 L (79-97) fl MCH 20 L (28-32) pg RDW 18.5 H (13.2-15.2) %
--- NOTE | 2016-10-07 13:39 | Discharge Summary ---
Providers - Providers Date of Admission: 10/06/16 12:57 Date of discharge: 10/08/16 Attending physician: ZACH SIMPSON MD Primary care physician: ZACH SIMPSON MD Hospitalization Reason for admission: active labor, IUP at term Delivery: Procedure details: See delivery note Episiotomy: none Laceration: 1st degree (well approximated) Other procedures: none complications: none Discharge diagnosis: IUP at term delivered [place] baby: male Condition at discharge: Good Disposition: DISCHARGED TO HOME OR SELFCARE Plan - Provider Discharge Summary Activity: routine, no sex for 6 weeks, no heavy lifting 4 weeks, no strenuous exercise Diet: routine Instructions: routine Additional instructions: [] Smoking cessation referral if applicable(refer to patient education folder for contact #) [] Refer to [facility] Booklet Call your doctor immediately for: * Fever > 100.5 * Heavy vaginal bleeding ( >1 pad per hour) * Severe persistent headache * Shortness of breath * Reddened, hot, painful area to leg or breast * Drainage or odor from incision. * Keep incision clean and dry at all times and follow doctor's instructions regarding bathing/showering - Follow up plan Follow up: SEBAS CHACKO, SALVATORE [Advanced Practice Nurse] - 6 Weeks
[2016-10-07] MEDS: PRENATAL VITAMIN PO SCH (18:16)
[2016-10-08] MEDS: MOTRIN PO SCH (00:10)
[2016-10-08] MEDS: PRENATAL VITAMIN PO SCH (10:55)
[2016-10-08 15:27] VITALS: BP 118/68
[2016-10-08 16:26] LABS: Hematocrit 26.4 % (30.3-42.9)
== END 2016-10-08 16:10 | disposition home or self-care (01) | DRG 775 ==
LOC: LD 12:57 → OB 10-07 00:21
PROVIDERS: ADMIT Obstetrics & Gynecology; ATTEND Obstetrics & Gynecology
PROC: 10E0XZZ Delivery of Products of Conception, External Approach (ICD-10-PCS; principal; 2016-10-06)
PROC: 0UQMXZZ Repair Vulva, External Approach (ICD-10-PCS; 2016-10-06)
DX: O76 Abnormality in fetal heart rate and rhythm complicating labor and delivery (principal); O77.0 Labor and delivery complicated by meconium in amniotic fluid; O99.62 Diseases of the digestive system complicating childbirth; K21.9 Gastro-esophageal reflux disease without esophagitis; O99.02 Anemia complicating childbirth; D50.9 Iron deficiency anemia, unspecified; O71.82 Other specified trauma to perineum and vulva; Z3A.40 40 weeks gestation of pregnancy; Z37.0 Single live birth
CPT/HCPCS: 36415; 85014; 85018; 85027; 86850; 86900; 86901; 90686; 99211; A6250; G0463; J2590; J7120